=== PATIENT | female | born 1995 | race Hispanic/Latino ===

== ENCOUNTER 2023-10-18 19:54 | Emergency (ER) | payer OTHER ==
[~2023-10-18] VITALS: Ht 149.9 cm; Wt 76.7 kg
[2023-10-18 20:25] VITALS: TEMP 98
[2023-10-18 20:39] LABS: BASOPHILS % 0.4 % (0.0-1.0); EOSINOPHILS # (AUTO) 0.2 (0.0-0.4); EOSINOPHILS % 1.7 % (0.0-6.0); HEMATOCRIT 34.9 % (34.2-44.1); HEMOGLOBIN 11.1 g/dL (12.0-16.0); LYMPHOCYTES # (AUTO) 3.4 (1.0-3.2); LYMPHOCYTES % 36.3 % (18.0-39.1); MEAN CORPUSCULAR HEMOGLOBIN 26.1 pg (28-32); MEAN CORPUSCULAR HGB CONC 31.8 g/dL (31-35); MEAN CORPUSCULAR VOLUME 81.9 fL (81-99); MONOCYTES # (AUTO) 0.5 (0.2-0.8); NEUTROPHILS # (AUTO) 5.2 (2.1-6.9); NEUTROPHILS % 56.2 % (38.7-80.0); PLATELET COUNT 362 x10e3/uL (140-360); RED BLOOD COUNT 4.26 x10e6/uL (3.6-5.1); RED CELL DISTRIBUTION WIDTH 16.4 % (11.7-14.4); WHITE BLOOD COUNT 9.34 x10e3/uL (4.8-10.8)
[2023-10-18 20:55] LABS: ALANINE AMINOTRANSFERASE 13 IU/L (0-55); ALBUMIN/GLOBULIN RATIO 1.3 (0.8-2.0); ALKALINE PHOSPHATASE 76 IU/L (40-150); ANION GAP 12.5 mmol/L (8-16); BILIRUBIN,TOTAL 0.2 mg/dL (0.2-1.2); BLOOD UREA NITROGEN 10 mg/dL (7-26); BUN/CREATININE RATIO 13 (6-25); CALCIUM 9.2 mg/dL (8.4-10.2); CARBON DIOXIDE 24 mmol/L (22-29); CHLORIDE 105 mmol/L (98-107); CREATINE KINASE 93 IU/L (29-168); CREATININE, SERUM 0.75 mg/dL (0.57-1.11); EST GLOMERULAR FILTRATION RATE 110 ML/MIN (>=60); GLUCOSE 133 mg/dL (74-118); POTASSIUM 3.5 mmol/L (3.5-5.1); SODIUM 138 mmol/L (136-145); TOTAL PROTEIN 7.1 g/dL (6.5-8.1)
[2023-10-18 21:04] LABS: TROPONIN I < 0.001 ng/mL (0-0.300)
[2023-10-18] MEDS: KETOROLAC TROMETHAMINE 30 MG/ML VIAL IV STA (21:31)
[2023-10-18] MEDS: TRAMADOL HCL 50 MG TAB PO STA (21:48)
[2023-10-18] MEDS ORDERED: ULTRAM 50MG50 MG PO ×2 (22:11→22:27)
[2023-10-18 22:50] VITALS: PULSE 81; RESP 17; O2SAT 99
== END 2023-10-18 23:32 | disposition home or self-care (01) ==
LOC: ER 20:18
DX: R06.02 Shortness of breath (principal); R07.89 Other chest pain
CPT/HCPCS: 36415; 71045; 80053; 81025; 82550; 83690; 83880; 84484; 85025; 85379; 93005; 99283; J1885

== ENCOUNTER 2023-11-03 07:53 | Emergency (ER) | payer OTHER ==
[~2023-11-03] VITALS: Ht 149.9 cm; Wt 76.7 kg
[~2023-11-03 07:53] MED LIST: ULTRAM 50MG50 MG PO
[2023-11-03] MEDS ORDERED: CEFDINIR300 MG PO (08:26)
[2023-11-03 08:31] LABS: CLARITY,URINE CLEAR (CLEAR); COLOR,URINE ORANGE (YELLOW); LEUKOCYTE ESTERASE ,URINE SMALL (NEGATIVE); NITRITE,URINE POSITIVE (NEGATIVE); PH,URINE 6 (5 - 7)
[2023-11-03 08:32] LABS: BILIRUBIN,URINE NEGATIVE (NEGATIVE); GLUCOSE, URINE 1+ (NEGATIVE); KETONES,URINE NEGATIVE (NEGATIVE); PROTEIN,URINE DIPSTICK NEGATIVE (NEGATIVE); URINE UROBILINOGEN 0.2 mg/dL (0.2 - 1)
[2023-11-03 08:46] VITALS: PULSE 79; RESP 18; TEMP 98.6; O2SAT 97
[2023-11-03] MEDS ORDERED: KETOROLAC TROMETHAMINE 30 MG/ML VIAL ONE (08:47)
[2023-11-03 08:50] LABS: EPITHELIAL CELLS,URINE FEW /LPF
[2023-11-03 08:51] LABS: BACTERIA,URINE FEW /HPF
[2023-11-03] MEDS: KETOROLAC TROMETHAMINE 30 MG/ML VIAL IM STA (08:53)
== END 2023-11-03 08:59 | disposition home or self-care (01) ==
LOC: ER 07:56
DX: R30.0 Dysuria (principal); N39.0 Urinary tract infection, site not specified
CPT/HCPCS: 81001; 81025; 87086; 87186; 99283; J1885